=== PATIENT | female | born 1995 | race American Indian/Alaskan Native ===

== ENCOUNTER 2019-01-24 09:36 | Emergency (ER) | payer OTHER ==
[2019-01-24] MEDS ORDERED: XYLOCAINE 1% MPF 5 mL INFILTRATI ONE (10:08)
--- NOTE | 2019-01-24 10:12 | Emergency Department Report ---
HPI - General Chief Complaint: Skin/Abscess/Foreign Body Time Seen by Provider: 01/24/19 09:57 - HPI HPI: 23-year-old female presents to the emergency department with complaint of an abscess or cyst on her left arm for the past 5-6 days. It is tender and she says that it is malodorous. There has been no drainage. She says that this happened to her in the past. She has not taken anything for her symptoms prior to arrival today. Her primary care physician is a Dr. Suresh Gardner. ED Past Medical Hx - Past Medical History Previous Medical History?: No - Surgical History Past Surgical History?: No - Social History Smoking Status: Never Smoker Substance Use Type: None - Medications Home Medications: Home Medications Medication Instructions Recorded Confirmed Last Taken Type HYDROcodone/APAP 5-325 [[place] 1 each PO Q6HR PRN #8 tablet 01/24/19 Unknown Rx 5/325] Sulfamethoxazole/Trimethoprim 1 each PO BID #14 tablet 01/24/19 Unknown Rx [Bactrim DS TAB] ED Review of Systems ROS: Stated complaint: CYST UNDER L ARM Other details as noted in HPI Comment: All other systems reviewed and negative Constitutional: denies: chills, fever Cardiovascular: denies: chest pain Musculoskeletal: denies: joint swelling, arthralgia Skin: lesions. denies: pruritus Physical Exam - Physical Exam Vital Signs: Vital Signs 01/24/19 09:41 Temperature 98.2 F Pulse Rate 81 Respiratory 16 Rate Blood Pressure 147/90 O2 Sat by Pulse 97 Oximetry Physical Exam: GENERAL: The patient is well-developed well-nourished. HENT: Normocephalic. Atraumatic. Patient has moist mucous membranes. EYES: Extraocular motions are intact. NECK: Supple. Trachea is midline. ABDOMEN:There is no abdominal distention. SKIN: There is a fluctuant abscess to the inferior portion of the left axilla. It is about 6 cm in its greatest dimension. It is fluctuant and warm. No current bleeding, weeping or drainage. NEURO: The patient is awake, alert, and oriented. The patient is cooperative. The patient has no focal neurologic deficits. The patient has normal speech. MUSCULOSKELETAL: Tenderness to palpation to the left axilla where the patient has an abscess. There is no evidence of acute injury. ED Course Vital Signs 01/24/19 09:41 Temperature 98.2 F Pulse Rate 81 Respiratory 16 Rate Blood Pressure 147/90 O2 Sat by Pulse 97 Oximetry - I & D Left Arm Type of Procedure: Simple Site: left axilla Blade Size: 11 I & D Procedure: betadine prep, sterile drapes applied, sterile dressing applied, gauze wick placed Progress: There is a left axillary abscess that is about 6 cm in its greatest diameter but feels like it could be larger within the soft tissue. The area was cleaned with Betadine. A 1 cm incision was made with a 11 blade scalpel. Using forceps and digital manipulation to break up loculations, there was about 4 or 5 mL of purulent return. The area was then packed with iodoform gauze. It was covered with sterile gauze. No obvious complications from this procedure. ED Medical Decision Making - Medical Decision Making Patient presents with left axillary abscess. Vital signs stable cream being afebrile. An I&D was done with about 4-6 mL's of purulent return and it was packed with iodoform gauze. Patient was placed on antibiotics and given some pain medication. She will follow up in 2 days for removal of the packing, which we discussed. - Differential Diagnosis abscess, hidradenitis, cyst, cellulitis Critical Care Time: No Critical care attestation.: If time is entered above; I have spent that time in minutes in the direct care of this critically ill patient, excluding procedure time. ED Disposition Clinical Impression: Abscess of left axilla Disposition: [id number] TO HOME OR SELFCARE Is pt being admited?: No Condition: Stable Instructions: Abscess Incision and Drainage (ED), Abscess (ED) Additional Instructions: Please soak the area or use warm, but not hot, compresses multiple times per day to try and express any further infection. The area can be cleaned with soap and water but should then remain dry. Take the antibiotics as prescribed. Return to the emergency Department with any worsening of your symptoms or any acute d istress. The packing should be removed in 2 days and can be done so by a primary care physician, urgent care, or back in the emergency department. You have been prescribed a medication that is sedating and therefore should not be taken prior to driving, working, and responsible for children and in no way should be mixed with alcohol of any quantity. Prescriptions: Sulfamethoxazole/Trimethoprim [Bactrim DS TAB] 1 each PO BID #14 tablet HYDROcodone/APAP 5-325 [[place] 5/325] 1 each PO Q6HR PRN #8 tablet PRN Reason: Pain Referrals: [facility] [Other] - 2-3 Days [facility] [Outside] - 2-3 Days
[2019-01-24 11:38] VITALS: BP 138/90
== END 2019-01-24 11:37 | disposition home or self-care (01) ==
LOC: ED 09:36
DX: L02.412 Cutaneous abscess of left axilla (principal)